=== PATIENT | female | born 1935 | race Caucasian/White ===

== ENCOUNTER 2020-04-27 15:56 | Emergency (ER) | payer MEDICARE, SELFPAY ==
--- NOTE | 2020-04-27 | CT_ITS ---
EXAMINATION: CT HEAD WITHOUT CONTRAST CT CERVICAL SPINE WITHOUT CONTRAST CLINICAL INFORMATION: Fall. Trauma. COMPARISON: None. TECHNIQUE: Imaging was performed from the skull base to vertex without intravenous administration of contrast. In addition, helical noncontrast CT imaging was acquired through the cervical spine and source images were reviewed along with axial reconstructions and sagittal and coronal MPRs. [This CT examination was performed using dose optimization techniques as appropriate, variously including the following: *Automated exposure control *Adjustment of mA and/or kV according to patient size (this includes techniques or standardized protocols for targeted exams where dose is matched to indication/reason for exam; i.e. extremities or head) *Use of iterative reconstruction technique] DLP: 740.43+303.37 mGy-cm FINDINGS: HEAD: No intracranial mass, hemorrhage, or midline shift is visualized. There is atrophy with prominence of the ventricles and the sulci and hypodensity of the periventricular white matter due to chronic small vessel ischemic disease. There are vascular calcifications of the internal carotid arteries bilaterally. No extra-axial collections are identified. The paranasal sinuses and mastoid air cells are well aerated. CERVICAL SPINE: There is no evidence of acute cervical spine fracture. Vertebral bodies remain normal in height. Cervical vertebrae have normal alignment. Cervical disc height normal. The facet joints are normal. There is minor degenerative change of the C1-C2 articulation between the dens and anterior arch of C1. No pre- or paravertebral soft tissue abnormality is identified. Limited assessment of the lung apices is unremarkable. IMPRESSION: 1. No acute intracranial pathology. 2. No CT evidence of acute cervical spine fracture or traumatic subluxation
--- NOTE | 2020-04-27 | CT_ITS ---
EXAMINATION: CT LUMBAR SPINE WITHOUT CONTRAST CLINICAL INFORMATION: Pain. Fall. Concern for compression fracture. COMPARISON: None TECHNIQUE: Axial images obtained through lumbar spine. Coronal and sagittal reformatted images are performed at the CT scanner This CT examination was performed using dose optimization techniques as appropriate, variously including the following: *Automated exposure control *Adjustment of mA and/or kV according to patient size (this includes techniques or standardized protocols for targeted exams where dose is matched to indication/reason for exam; i.e. extremities or head) *Use of iterative reconstruction technique DLP; 560.23 mGy-cm FINDINGS: Lumbar vertebrae have normal height and alignment. No fracture or bone destruction. There is a large hemangioma involving the most of the L1 vertebrae. Lumbar disc heights are normal. There is moderate facet joint arthrosis L4-L5 and L5-S1. No spondylolysis or spondylolisthesis. No paraspinal hematoma or fluid collection. The visualized portions of kidneys are unremarkable. There are vascular wall calcifications of aorta and iliac arteries but there is no aneurysm. IMPRESSION: No acute abnormality of the lumbar spine. Degenerative spondylosis of lower lumbar spine. Large hemangioma involving the L1 vertebrae.
--- NOTE | 2020-04-27 | XR_ITS ---
EXAMINATION: 1. LEFT HAND AND WRIST. 2. LEFT FOREARM. 3. LEFT ELBOW. 4. LEFT HUMERUS CLINICAL INFORMATION: Pain after a fall COMPARISON: None TECHNIQUE: 1. Left hand and wrist. 3 views 2. Left forearm. 2 views 3. Left elbow. 3 views 4. Left humerus. 2 views FINDINGS: 1. Left hand and wrist. There is osteopenia. There is a comminuted transverse intra-articular displaced fracture of the distal radius. There is reversal the radiocarpal angle. There is a transverse mildly displaced fracture of the ulna at the metadiaphysis. Small osseous density adjacent to the ulnar styloid is likely chronic. 2. Left forearm. No additional fracture of the radius or ulna. 3. Left elbow. No fracture dislocation of the elbow. 4. Left humerus. No fracture of the humerus. Shoulder is unremarkable. IMPRESSION: 1. Left hand and wrist. Comminuted intra-articular fracture of the distal radius. Fracture of the distal ulna. 2. Left forearm. No additional fracture of the radius or ulna. 3. Left elbow. No acute abnormality. 4. Left humerus. No acute abnormality.
[2020-04-27 16:03] VITALS: BP 122/59; PULSE 71; RESP 20; O2SAT 92; BMI 31.8
--- NOTE | 2020-04-27 16:09 | PC.NURSE ---
This RN responded [facility] [employer] [facility] Pt drove herself to ed, stated that she had fallen down aprox 10 stairs while trying to assist someone else. Pt denies thinner and LOC. had wrapped l wrist with FLAKITO at home. palpable lumps on top of head. no c spine tenderness while in vehicle. was collared while still in vehicle then transfered to stretcher in parking lot.
--- NOTE | 2020-04-27 16:42 | ED.FALL ---
HPI - Fall General Chief Complaint: Fall <NAA Cowart - Last Filed: 04/27/20 19:56> Stated Complaint: Fall <NAA Cowart - Last Filed: 04/27/20 19:56> Time Seen by Provider: 04/27/20 16:28 <NAA Cowart - Last Filed: 04/27/20 19:56> Source: patient and EMS <NAA Cowart - Last Filed: 04/27/20 19:56> Mode of arrival: EMS <NAA Cowart - Last Filed: 04/27/20 19:56> Limitations: no limitations <NAA Cowart - Last Filed: 04/27/20 19:56> History of Present Illness HPI Narrative: 84 y/o female presenting s/p fall down 5 stairs today while helping an elderly man with a walker she tripped and fell. She landed on her back, hitting her head and left side as fell down 5 steps. She reports pain in her low back, left arm and wrist. No LOC. Not on blood thinners. No neck pain or headache. <NAA Cowart - Last Filed: 04/27/20 19:56> MD complaint: fall <NAA Cowart - Last Filed: 04/27/20 19:56> Onset (ago): minute(s) (45) <NAA Cowart - Last Filed: 04/27/20 19:56> Fall from: standing <NAA Cowart - Last Filed: 04/27/20 19:56> Fall witnessed: yes, by bystander <NAA Cowart - Last Filed: 04/27/20 19:56> Loss of consciousness: none <NAA Cowart - Last Filed: 04/27/20 19:56> Prolonged down time: no <NAA Cowart - Last Filed: 04/27/20 19:56> Symptoms prior to fall: none <NAA Cowart - Last Filed: 04/27/20 19:56> Context: tripped/slipped <NAA Cowart - Last Filed: 04/27/20 19:56> Location of injury: head and back <ANA Cowart Last Filed: 04/27/20 19:56> Location of injury - extremities: left: shoulder, arm, elbow, forearm and hand <NAA Cowart Last Filed: 04/27/20 19:56> Severity: moderate <NAA Cowart Filed: 04/27/20 19:56> Severity scale (1-10): 7 <NAA Cowart Last Filed: 04/27/20 19:56> Quality: aching <NAA Cowart Filed: 04/27/20 19:56> Associated symptoms (after fall): weakness <NAA Cowart Filed: 04/27/20 19:56> Related Data Home Medications: Previous Rx's Medication Instructions Recorded oxycodone [Roxicodone] 2.5 mg PO Q8H PRN #10 tab 04/27/20 <NAA Cowart Last Filed: 04/27/20 19:56> Allergies/Adverse Reactions: Allergies Allergy/AdvReac Type Severity Reaction Status Date / Time No Known Allergies Allergy Verified 04/27/20 16:13 <NAA Cowart Filed: 04/27/20 19:56> Review of Systems Review of Systems: Constitutional: No Fever, No Chills ENT/Mouth: No sore throat, No Rhinorrhea, No Swallowing Difficulty Eyes: No Eye Pain, No Swelling, No Redness Cardiovascular: No Chest Pain or SOB, No Orthopnea, positive Edema (chronic) Respiratory: No Cough, No Sputum, No Wheezing or dyspnea Gastrointestinal: No Nausea, No Vomiting, No Diarrhea, No abdominal Pain, No Hematochezia, No Melena Genitourinary: No Dysuria, No Urinary Frequency, No Hematuria Musculoskeletal: positive left wrist and forearm pain, left shoulder pain, low back pain, chronic bilateral knee pain No Myalgias Skin: No Skin Lesions, No rash Neuro: No Weakness, No Numbness, No Dizziness, No Headache Psych: No Anxiety/Panic, No Depression Heme/Lymph: No Bruising, No Lymphadenopathy Endocrine: No Polyuria, No Polydipsia All other 10 point ROS are negative. <NAA Cowart Last Filed: 04/27/20 19:56> [facility] Past Medical History Attestation statement: The following information was validated with the patient. <NAA Cowart - Last Filed: 04/27/20 19:56> Medical History: Medical History COPD (chronic obstructive pulmonary disease) HTN (hypertension) <NAA Cowart - Last Filed: 04/27/20 19:56> Social History Social History: Social History Alcohol intake: never Smoking Status: Never smoker Smoked in Last 30 Days: No Use of substances other than those prescribed or required for medical reasons: No Advance Directives: No Advance Directives Information Provided: Yes <NAA Cowart - Last Filed: 04/27/20 19:56> Physical Exam Vital Signs and I&O and Narrative: Vital Signs and I&O: Vital Signs Temp 98.6 F 04/27/20 20:36 Pulse 76 04/27/20 20:36 Resp 15 04/27/20 20:36 BP 136/56 L 04/27/20 20:36 Pulse Ox 98 04/27/20 20:36 Intake & Output 04/27/20 04/27/20 04/28/20 06:59 18:59 06:59 Weight 89.6 kg Body Mass Index 31.8 Appearance: Alert. Oriented X3. No acute distress. Eyes: Pupils equal, round and reactive to light. ENT: Pharynx normal. Neck: Normal inspection. Neck supple. No C-spine tenderness CVS: Normal heart rate and rhythm. Pulses normal. Respiratory: No respiratory distress. Breath sounds normal. Abdomen: Soft and nontender. +BS x4 Skin: Skin warm and dry. Normal skin color. Normal skin turgor. No rashes. Extremities: left forearm tender with limited ROM of left wrist. NV intact. Neuro: Oriented X 3. No motor deficit. No sensory deficit. <NAA Cowart - Last Filed: 04/27/20 19:56> Vital Signs and I&O: Vital Signs Temp 98.6 F 04/27/20 20:36 Pulse 76 04/27/20 20:36 Resp 15 04/27/20 20:36 BP 136/56 L 04/27/20 20:36 Pulse Ox 98 10/03/20 20:36 Intake & Output 04/27/20 04/27/20 04/28/20 06:59 18:59 06:59 Weight 89.6 kg Body Mass Index 31.8 <Geovany Cee DO - Last Filed: 04/28/20 01:16> Course Course Hospital Course: imaging reveals distal ulnar and radius fracture - CT head/neck and lumbar spine showed no acute injury. will splint in [place] splint and refer to ortho. recommended assessment for STR however patient is refusing <NAA Cowart - Last Filed: 04/27/20 19:56> MDM - Fall Differential Diagnosis Differential diagnosis: Likely dislocation, fracture, compression fracture and concussion without loss of consciousness <NAA Cowart - Last Filed: 04/27/20 19:56> Medical Records Attestation: I reviewed the patient's medical records. <NAA Cowart - Last Filed: 04/27/20 19:56> Lab Data Attestation: I reviewed the patient's lab results. <NAA Cowart - Last Filed: 04/27/20 19:56> Result diagrams: : 04/27/20 17:20 04/27/20 17:20 <NAA Cowart - Last Filed: 04/27/20 19:56> Labs: Lab Results 04/27/20 04/27/20 04/27/20 Range/Units 17:20 17:20 17:20 WBC 13.9 H (4.8-10.8) X10*3/uL RBC 4.76 (4.20-5.50) X10*6/uL Hgb 14.4 (12.0-16.0) g/dl Hct 44.1 (37-47) % MCV 92.6 (80-98) fL MCH 30.3 (27.0-33.0) pg MCHC 32.7 (31.0-35.0) g/dl RDW 14.2 (11.0-16.0) % Plt Count 201 (160-400) X10*3/uL MPV 10.5 (9.4-12.3) fL Immature Gran % (Auto) 0.7 H (0.0-0.4) % Neut % (Auto) 82.8 H (45-73) % Lymph % (Auto) 7.9 L (20-40) % [place] % (Auto) 8.3 (2-11) % Eos % (Auto) 0.1 (0-4) % Baso % (Auto) 0.2 (0-2) % Neut # (Auto) 11.5 H (2.0-8.3) X10*3/uL Lymph # (Auto) 1.1 L (1.2-4.9) X10*3/uL [place] # (Auto) 1.2 (0.1-1.2) X10*3/uL Eos # (Auto) 0.0 (0.0-0.4) X10*3/uL Baso # (Auto) 0.0 (0.0-0.2) X10*3/uL Abs Immat Gran (auto) 0.10 H (0.00-0.03) X10*3/uL Absolute Nucleated RBC 0.000 (0.0-0.012) X10*3/uL Nucleated RBC % (auto) 0.0 (0.0-0.2) /100WBC PT 12.5 (10.8-13.0) SEC INR 1.1 (0.9-1.1) APTT 31.9 (24.1-38.0) SEC Sodium 141 (135-145) mmol/L Potassium 4.9 (3.3-5.1) mmol/l Chloride 107 (96-108) mmol/L Carbon Dioxide 24 (22-29) mmol/L Anion Gap 15 (12-20) BUN 21 H (9-16) mg/dL Creatinine 0.95 (0.5-1.4) mg/dL Estim Creat Clear Calc 48.8 Estimated GFR 56 Random Glucose 105 (60-115) mg/dL Calcium 9.8 (8.4-10.2) mg/dL Total Bilirubin 0.9 (0.0-1.0) mg/dL Direct Bilirubin 0.3 (0.0-0.5) mg/dL AST 40 H (5-31) U/L ALT 31 (0-31) U/L Alkaline Phosphatase 102 (39-117) U/L Total Protein 7.4 (6.5-8.0) g/dL Albumin 4.2 (3.5-5.0) g/dL <NAA Cowart - Last Filed: 04/27/20 19:56> Lab Results 04/27/20 04/27/20 04/27/20 Range/Units 17:20 17:20 17:20 WBC 13.9 H (4.8-10.8) X10*3/uL RBC 4.76 (4.20-5.50) X10*6/uL Hgb 14.4 (12.0-16.0) g/dl Hct 44.1 (37-47) % MCV 92.6 (80-98) fL MCH 30.3 (27.0-33.0) pg MCHC 32.7 (31.0-35.0) g/dl RDW 14.2 (11.0-16.0) % Plt Count 201 (160-400) X10*3/uL MPV 10.5 (9.4-12.3) fL Immature Gran % (Auto) 0.7 H (0.0-0.4) % Neut % (Auto) 82.8 H (45-73) % Lymph % (Auto) 7.9 L (20-40) % [place] % (Auto) 8.3 (2-11) % Eos % (Auto) 0.1 (0-4) % Baso % (Auto) 0.2 (0-2) % Neut # (Auto) 11.5 H (2.0-8.3) X10*3/uL Lymph # (Auto) 1.1 L (1.2-4.9) X10*3/uL [place] # (Auto) 1.2 (0.1-1.2) X10*3/uL Eos # (Auto) 0.0 (0.0-0.4) X10*3/uL Baso # (Auto) 0.0 (0.0-0.2) X10*3/uL Abs Immat Gran (auto) 0.10 H (0.00-0.03) X10*3/uL Absolute Nucleated RBC 0.000 (0.0-0.012) X10*3/uL Nucleated RBC % (auto) 0.0 (0.0-0.2) /100WBC PT 12.5 (10.8-13.0) SEC INR 1.1 (0.9-1.1) APTT 31.9 (24.1-38.0) SEC Sodium 141 (135-145) mmol/L Potassium 4.9 (3.3-5.1) mmol/l Chloride 107 (96-108) mmol/L Carbon Dioxide 24 (22-29) mmol/L Anion Gap 15 (12-20) BUN 21 H (9-16) mg/dL Creatinine 0.95 (0.5-1.4) mg/dL Estim Creat Clear Calc 48.8 Estimated GFR 56 Random Glucose 105 (60-115) mg/dL Calcium 9.8 (8.4-10.2) mg/dL Total Bilirubin 0.9 (0.0-1.0) mg/dL Direct Bilirubin 0.3 (0.0-0.5) mg/dL AST 40 H (5-31) U/L ALT 31 (0-31) U/L Alkaline Phosphatase 102 (39-117) U/L Total Protein 7.4 (6.5-8.0) g/dL Albumin 4.2 (3.5-5.0) g/dL <Geovany Cee DO - Last Filed: 04/28/20 01:16> Imaging Data arm xray: Radiologist's impression: 1. Left hand and wrist. Comminuted intra-articular fracture of the distal radius. Fracture of the distal ulna. <NAA Cowart - Last Filed: 04/27/20 19:56> Discharge Plan Discharge Clinical Impression: Closed fracture distal radius and ulna, Fall (on) (from) other stairs and steps, initial encounter <NAA Cowart - Last Filed: 04/27/20 19:56> Patient Disposition: Home, Self-Care <NAA Cowart - Last Filed: 04/27/20 19:56> Instructions: Wrist Fracture in Adults (ED) <NAA Cowart - Last Filed: 04/27/20 19:56> Additional Instructions: Assessment for Short Term Rehab was recommended however you are refusing. Recommend that family help you with your activities of daily living until you are evaluated by Orthopedics. Wear your splint until you are evaluated by Orthopedics. Keep left arm elevated when able. If you lose feeling in your hand or fingers, numbness, tingling or loss of function come back to the ER or call 911. Limit use of your left hand. <NAA Cowart - Last Filed: 04/27/20 19:56> Prescriptions: New oxycodone [Roxicodone] 5 mg tablet 2.5 mg PO Q8H PRN (Reason: pain) Qty: 10 RF: 0 <NAA Cowart - Last Filed: 04/27/20 19:56> Referrals: Maico Castrejon MD [Physician] - 2 days <NAA Cowart - Last Filed: 04/27/20 19:56> Interventions: ED Discharge Assessment Last Done: 04/27/20 20:26 <NAA Cowart - Last Filed: 04/27/20 19:56> Discharge Date/Time: 04/27/20 20:38 <NAA Cowart - Last Filed: 04/27/20 19:56>
[2020-04-27 17:29] LABS: MANUAL DIFF FLAG NO
[2020-04-27 17:39] LABS: INTERNATIONAL NORM RATIO 1.1 (0.9-1.1); Prothrombin Time 12.5 SEC (10.8-13.0)
[2020-04-27 17:42] LABS: Partial Thromboplastin Time 31.9 SEC (24.1-38.0)
[2020-04-27 17:44] LABS: Basophils Percent Auto 0.2 % (0-2); Eosinophils Percent Auto 0.1 % (0-4); Hematocrit 44.1 % (37-47); Hemoglobin 14.4 g/dl (12.0-16.0); Imm Gran Pct Auto 0.7 % (0.0-0.4); Lymphocytes Absolute Auto 1.1 X10*3/uL (1.2-4.9); Lymphocytes Percent Auto 7.9 % (20-40); Mean Corpuscular HGB Conc 32.7 g/dl (31.0-35.0); Mean Corpuscular Hemoglobin 30.3 pg (27.0-33.0); Mean Corpuscular Volume 92.6 fL (80-98); Mean Platelet Volume 10.5 fL (9.4-12.3); Monocytes Absolute Auto 1.2 X10*3/uL (0.1-1.2); Monocytes Percent Auto 8.3 % (2-11); Neutrophils Absolute Auto 11.5 X10*3/uL (2.0-8.3); Neutrophils Percent Auto 82.8 % (45-73); Platelet Count 201 X10*3/uL (160-400); Red Blood Count 4.76 X10*6/uL (4.20-5.50); Red Cell Distribution Width 14.2 % (11.0-16.0); White Blood Count 13.9 X10*3/uL (4.8-10.8)
[2020-04-27 17:54] VITALS: BP 147/70; PULSE 77; RESP 18; TEMP 36.5; O2SAT 94
[2020-04-27 18:10] LABS: Alanine Aminotransferase 31 U/L (0-31); Albumin Level 4.2 g/dL (3.5-5.0); Alkaline Phosphatase 102 U/L (39-117); Anion Gap 15 (12-20); Aspartate Amino Transferase 40 U/L (5-31); Bilirubin Direct 0.3 mg/dL (0.0-0.5); Bilirubin Total 0.9 mg/dL (0.0-1.0); Blood Urea Nitrogen 21 mg/dL (9-16); Calcium 9.8 mg/dL (8.4-10.2); Carbon Dioxide 24 mmol/L (22-29); Chloride 107 mmol/L (96-108); Creatinine Clr Calc Pharmacy 48.8; Estimated Glomerular Filt Rate 56; Glucose Random 105 mg/dL (60-115); Potassium 4.9 mmol/l (3.3-5.1); Sodium 141 mmol/L (135-145); Total Protein 7.4 g/dL (6.5-8.0)
[2020-04-27] MEDS: Pregabalin 100 MG CAPSULE PO (18:52)
[2020-04-27] MEDS: Acetaminophen 325 MG TABLET 650 MG PO (18:52)
--- NOTE | 2020-04-27 19:03 | PC.NURSE ---
PATIENT HAS A FALL TODAY AND FELL BACKWARDS DOWN 5 STAIRS. PATIENT HAS A HEMATOMA ON THE BACK OF HER HEAD. LEFT ARM AND ELBOW XRAYED TO CHECK FOR FRACTURES/BREAKS. CARE TAKEN OVER FROM DYLAN Mccarthy RN. PATIENT AWAITING XRAY RESULTS AND MD RE-EVALUATION
[2020-04-27 20:36] VITALS: BP 136/56; PULSE 76; RESP 15; TEMP 37; O2SAT 98
== END 2020-04-27 20:38 | disposition home or self-care (01) ==
PROVIDERS: Physician Assistant; Emergency Provider Emergency Medicine; PCP Internal Medicine
DX: S52.602A Unspecified fracture of lower end of left ulna, initial encounter for closed fracture (principal); S52.502A Unspecified fracture of the lower end of left radius, initial encounter for closed fracture; W10.8XXA Fall (on) (from) other stairs and steps, initial encounter; I10 Essential (primary) hypertension; Y93.89 Activity, other specified; Y92.9 Unspecified place or not applicable; Y99.9 Unspecified external cause status
CPT/HCPCS: 29125; 36415; 70450; 72125; 72131; 73060; 73070; 73090; 73110; 73130; 80048; 80076; 85025; 85610; 85730; 99284

== ENCOUNTER 2020-05-01 16:34 | Emergency (ER) | payer MEDICARE, SELFPAY ==
[2020-05-01 17:17] VITALS: BP 123/52; PULSE 71; RESP 18; TEMP 36.6; O2SAT 94; BMI 33.5
--- NOTE | 2020-05-01 17:35 | ED.EXTPRO ---
HPI - Extremity Problem General Chief complaint: Extremity Injury, Upper <Geetha Pace NP - Last Filed: 05/01/20 17:45> Stated complaint: HAND SWELLING <Geetha Pace NP - Last Filed: 05/01/20 17:45> Time Seen by Provider: 05/01/20 17:10 <Geetha Pace NP - Last Filed: 05/01/20 17:45> Source: patient <Geetha Pace NP - Last Filed: 05/01/20 17:45> Mode of arrival: ambulatory <JITENDRA Hanson Last Filed: 05/01/20 17:45> Limitations: no limitations <JITENDRA Hanson Last Filed: 05/01/20 17:45> History of Present Illness HPI Narrative: Patient here on April 27 status post fall. Diagnosed with left wrist fracture. Placed in sugar-tong splint. Today increasing swelling to the left hand. Return to ED for same. has not seen Orthopedics yet. <Geetha Pace NP - Last Filed: 05/01/20 17:45> MD Complaint: extremity swelling <JITENDRA Hanson Last Filed: 05/01/20 17:45> Onset (ago): day(s) ( One day) <JITENDRA Hanson Last Filed: 05/01/20 17:45> Pain Consistency: other ( no pain) <JITENDRA Hanson Last Filed: 05/01/20 17:45> Location: left <JITENDRA Hanson Last Filed: 05/01/20 17:45> Radiation: none <JITENDRA Hanson Last Filed: 05/01/20 17:45> Relieving factors: nothing <JITENDRA Hanson Last Filed: 05/01/20 17:45> Associated symptoms: denies other symptoms <JITENDRA Hanson Last Filed: 05/01/20 17:45> Related Data Home medications: Previous Rx's Medication Instructions Recorded oxycodone [Roxicodone] 2.5 mg PO Q8H PRN #10 tab 04/27/20 <Geetha Pace NP - Last Filed: 05/01/20 17:45> Allergies/Adverse reactions: Allergies Allergy/AdvReac Type Severity Reaction Status Date / Time No Known Allergies Allergy Verified 04/27/20 16:13 <Geetha Pace NP - Last Filed: 05/01/20 17:45> Review of Systems Review of Systems: Yes all other systems are reviewed and are negative <Geetha Pace NP - Last Filed: 05/01/20 17:45> Constitutional: Constitutional: Reports no additional constitutional complaints, Denies body ache(s), Denies chills, Denies fever(s), Denies headache(s) and Denies weakness <Geetha Pace NP - Last Filed: 05/01/20 17:45> Eyes: Eyes: Reports no additional eye complaints and Denies change in vision <Geetha Pace NP - Last Filed: 05/01/20 17:45> ENT: Reports system reviewed and no additional complaints, except as documented, Denies dizziness, Denies headache(s), Denies nasal congestion, Denies nasal discharge and Denies neck pain <Geetha Pace NP - Last Filed: 05/01/20 17:45> Cardiovascular: Cardiovascular: Reports no additional cardiovascular complaints, Denies chest pain, Denies leg edema and Denies dyspnea <Geetha Pace NP - Last Filed: 05/01/20 17:45> Respiratory: Respiratory: Reports no additional respiratory complaints, Denies cough and Denies dyspnea <Geetha Pace NP - Last Filed: 05/01/20 17:45> Gastrointestinal: Gastrointestinal: Reports no additional gastrointestinal complaints, Denies abdominal pain, Denies diarrhea, Denies nausea and Denies vomiting <Geetha Pace NP - Last Filed: 05/01/20 17:45> Genitourinary: Genitourinary: Reports no additional female genitourinary complaints and Denies urinary incontinence <Geetha Pace NP - Last Filed: 05/01/20 17:45> Musculoskeletal: Musculoskeletal: Reports no additional musculoskeletal complaints, Denies back pain, Denies arthralgias, Reports joint swelling, Denies neck pain, Denies numbness and Denies tingling <Geetha Pace NP - Last Filed: 05/01/20 17:45> Integumentary/Breasts: Skin/Breast: Reports system reviewed and no additional complaints, except as docu and Denies rash <Geetha Pace NP - Last Filed: 05/01/20 17:45> Neurologic: Reports system reviewed and no additional complaints, except as documented, Denies Abnormal speech present, Denies dizziness, Denies headache(s), Denies numbness, Denies tingling and Denies weakness <Geetha Pace NP - Last Filed: 05/01/20 17:45> PMF Past Medical History Attestation statement: The following information was validated with the patient. <Geetha Pace NP - Last Filed: 05/01/20 17:45> Source: obtained from family and nursing notes reviewed <Geetha Pace NP - Last Filed: 05/01/20 17:45> Medical History: Medical History COPD (chronic obstructive pulmonary disease) HTN (hypertension) Lupus <Geetha Pace NP - Last Filed: 05/01/20 17:45> Surgical History: Surgical History History of bilateral knee replacement <Geetha Pace NP - Last Filed: 05/01/20 17:45> Social History Social History: Social History Alcohol intake: never Smoking Status: Never smoker Smoked in Last 30 Days: No Use of substances other than those prescribed or required for medical reasons: No Advance Directives: No Advance Directives Information Provided: Yes <Geetha Pace NP - Last Filed: 05/01/20 17:45> Physical Exam Vital Signs and I&O and Narrative: Vital Signs and I&O: Vital Signs Temp 97.9 F 05/01/20 17:17 Pulse 71 05/01/20 17:17 Resp 18 05/01/20 17:17 BP 123/52 L 05/01/20 17:17 Pulse Ox 94 05/01/20 17:17 Intake & Output 05/01/20 05/01/20 05/02/20 06:59 18:59 06:59 Weight 88.451 kg Body Mass Index 33.5 <Geetha Pace NP - Last Filed: 05/01/20 17:45> Vital Signs and I&O: Vital Signs Temp 97.9 F 05/01/20 17:17 Pulse 71 05/01/20 17:17 Resp 18 05/01/20 17:17 BP 123/52 L 05/01/20 17:17 Pulse Ox 94 05/01/20 17:17 Intake & Output 05/01/20 05/01/20 05/02/20 06:59 18:59 06:59 Weight 88.451 kg Body Mass Index 33.5 <Geovany Cee DO - Last Filed: 05/02/20 02:40> Const: General: cooperative, healthy appearing, comfortable and no acute distress <Geetha Pace NP - Last Filed: 05/01/20 17:45> Orientation/consciousness: patient oriented x3 <Geetha Pace NP - Last Filed: 05/01/20 17:45> Limitations: no limitations <Geetha Pace NP - Last Filed: 05/01/20 17:45> HENMT: Head: Yes normal to inspection <Geetha Pace NP - Last Filed: 05/01/20 17:45> Ears: hearing grossly normal bilaterally <Geetha Pace NP - Last Filed: 05/01/20 17:45> General nose exam: Normal external nose present <Geetha Pace NP - Last Filed: 05/01/20 17:45> Face and sinus: Yes normal facial exam <Geetha Pace NP - Last Filed: 05/01/20 17:45> Mouth: Normal oral and palatal mucosa present <Geetha Pace NP - Last Filed: 05/01/20 17:45> Throat: Yes posterior oropharynx normal <Geetha Pace NP - Last Filed: 05/01/20 17:45> Eyes: General: appearance normal, both eyes and all related structures <Geetha Pace NP - Last Filed: 05/01/20 17:45> Pupils: Equal, round and reactive pupils present <Geetha Pace NP - Last Filed: 05/01/20 17:45> Neck: Neck: Yes normal visual inspection <Geetha Pace NP - Last Filed: 05/01/20 17:45> Chest: Chest palpation & inspection: normal inspection of the chest <Geetha Pace NP - Last Filed: 05/01/20 17:45> Resp: Effort & Inspection: normal respiratory effort <Geetha Pace NP - Last Filed: 05/01/20 17:45> Auscultation: clear to auscultation bilaterally <Geetha Pace NP - Last Filed: 05/01/20 17:45> Cardio: Rate: regular rate <Geetha Pace NP - Last Filed: 05/01/20 17:45> Rhythm: regular rhythm <Geetha Pace NP - Last Filed: 05/01/20 17:45> Peripheral pulses: Peripheral pulses 2+ throughout <Geetha Pace NP - Last Filed: 05/01/20 17:45> GI: Inspection: Yes normal to inspection <Geetha Pace NP - Last Filed: 05/01/20 17:45> Palpation (GI): Soft to palpation and nontender <Geetha Pace NP - Last Filed: 05/01/20 17:45> Auscultation: normal bowel sounds <Geetha Pace NP - Last Filed: 05/01/20 17:45> Back/Spine/Pelvis: Thoracic/Lumbar Spine: thoracic and lumbar spine normal to inspection <Geetha Pace NP - Last Filed: 05/01/20 17:45> Skin: General skin exam: no rashes or lesions noted <Geetha Pace NP - Last Filed: 05/01/20 17:45> Neuro: General: patient oriented x3, no focal motor deficits and normal sensation to monofilament <Geetha Pace NP - Last Filed: 05/01/20 17:45> Cranial nerves: Yes Equal, round and reactive pupils present <Geetha Pace NP - Last Filed: 05/01/20 17:45> Cognition (Neuro): normal cognition <JITENDRA Hanson Last Filed: 05/01/20 17:45> Speech: No Abnormal speech present <Geetha Pace NP - Last Filed: 05/01/20 17:45> Gait exam (Neuro): Normal gait present <JITENDRA Hanson Last Filed: 05/01/20 17:45> Motor exam (neuro): 5/5 motor strength present throughout <Geetha Pace NP - Last Filed: 05/01/20 17:45> Extrem: Other: left hand has some ecchymosis over the dorsal aspect. It is warm to touch. There is some [id number]-gr-[id number] swelling over the dorsal aspect. Normal cap refill. Neurovascularly intact distally. After splint was removed patient was noted to have some ecchymosis over the dorsal distal wrist with some mild pain on exam. Palpable radial and ulna pulse. denies any pain over the hand. <Geetha Pace NP - Last Filed: 05/01/20 17:45> General: Yes normal to inspection <Geetha Pace NP - Last Filed: 05/01/20 17:45> MDM - Extremity (Nontraumatic) MDM Narrative Medical decision making narrative: Patient here with some left hand swelling in the setting of recent splint placement for a fractured left wrist. The splint was removed and a new sugar-tong splint was placed. We discussed elevation at home to prevent dependent edema. Reviewed follow-up with orthopedics. Reviewed worrisome signs and symptoms of when to return to the emergency department. <JITENDRA Hanson Last Filed: 05/01/20 17:45> Discharge Plan Discharge Clinical Impression: Fracture of wrist <JITENDRA Hanson Last Filed: 05/01/20 17:45> Patient Disposition: Home, Self-Care <Geetha Pace NP - Last Filed: 05/01/20 17:45> Instructions: Wrist Fracture in Adults (ED), Splint Care (ED) <Geetha Pace NP - Last Filed: 05/01/20 17:45> Additional Instructions: call orthopedics tomorrow for follow-up appointment Keep your left hand on 3 or more pillows with sitting down Apply ice over the splint. <Geetha Pace NP - Last Filed: 05/01/20 17:45> Prescriptions: No Action oxycodone [Roxicodone] 5 mg tablet 2.5 mg PO Q8H PRN (Reason: pain) Qty: 10 RF: 0 <Geetha Pace NP - Last Filed: 05/01/20 17:45> Referrals: Alon Stanley MD [Physician] - 2 days <Geetha Pace NP - Last Filed: 05/01/20 17:45> Interventions: ED Discharge Assessment Last Done: 05/01/20 19:31 <Geetha Pace NP - Last Filed: 05/01/20 17:45> Discharge Date/Time: 05/01/20 18:45 <Geetha Pace NP - Last Filed: 05/01/20 17:45>
== END 2020-05-01 18:45 | disposition home or self-care (01) ==
PROVIDERS: Emergency Provider Emergency Medicine; PCP Internal Medicine
DX: S62.101A Fracture of unspecified carpal bone, right wrist, initial encounter for closed fracture (principal); M79.642 Pain in left hand; X58.XXXA Exposure to other specified factors, initial encounter; Y93.9 Activity, unspecified; Y92.9 Unspecified place or not applicable; Y99.9 Unspecified external cause status
CPT/HCPCS: 99284

== ENCOUNTER 2020-05-01 21:39 | Emergency (ER) | payer MEDICARE, SELFPAY ==
--- NOTE | 2020-05-01 | XR_ITS ---
EXAMINATION: XR FOREARM, RIGHT CLINICAL INFORMATION: Persistent pain, fracture of radius and ulna in cast. COMPARISON: Prior radiograph of the left hand and wrist 04/27/2020 TECHNIQUE: AP and lateral views of the right forearm were obtained. FINDINGS: Cast is in place. Fracture line of the distal radius and ulna remains partially radiolucent. There is good alignment of the fracture fragments. There is no new abnormality IMPRESSION: Reduced distal radial and ulnar fractures in cast. There is no new. Abnormality
[2020-05-01 21:48] VITALS: BP 131/60; PULSE 79; RESP 16; TEMP 36.4; O2SAT 95; BMI 33.5
--- NOTE | 2020-05-01 22:29 | ED.EXTPRO ---
HPI - Extremity Problem General Chief complaint: Extremity Injury, Upper Stated complaint: ARM PAIN Time Seen by Provider: 05/01/20 22:29 History of Present Illness HPI Narrative: This is a 84-year-old female who presents to the emergency department after being evaluated earlier with complaints left ulnar side wrist pain. All documentation since her initial evaluation on Wednesday as well as imaging was reviewed by me. Patient denies any numbness or tingling to her fingers on the left hand and only complains of the localized pain to her left distal ulna. Related Data Previous Rx's Medication Instructions Recorded oxycodone [Roxicodone] 2.5 mg PO Q8H PRN #10 tab 04/27/20 Allergies Allergy/AdvReac Type Severity Reaction Status Date / Time No Known Allergies Allergy Verified 04/27/20 16:13 Review of Systems Review of Systems: Pertinent positives and negatives as stated in the HPI. GEN: no fevers, chills, fatigue, +pain HEENT: no nasal congestion, sore throat, ear pain NEURO: no headache, dizziness, focal weakness PULM: no cough, shortness of breath CV: no chest pain, palpitations, LE edema ABD: no abdominal pain, nausea, vomiting, diarrhea : no dysuria, urgency, frequency SKIN: no rash ROS otherwise negative x 10 PMFSH Past Medical History Source: nursing notes reviewed Medical History COPD (chronic obstructive pulmonary disease) HTN (hypertension) Lupus Surgical History History of bilateral knee replacement Social History Social History Alcohol intake: never Smoking Status: Never smoker Smoked in Last 30 Days: No Use of substances other than those prescribed or required for medical reasons: No Advance Directives: No Advance Directives Information Provided: Yes Physical Exam Vital Signs and I&O and Narrative: Vital Signs and I&O: Vital Signs Temp 97.5 F 05/01/20 21:48 Pulse 79 05/01/20 21:48 Resp 16 05/01/20 21:48 BP 131/60 05/01/20 21:48 Pulse Ox 95 05/01/20 21:48 Intake & Output 05/01/20 05/01/20 05/02/20 06:59 18:59 06:59 Weight 88.451 kg Body Mass Index 33.5 VITAL SIGNS: Reviewed. GENERAL: Well developed, well nourished, in no acute distress. HEAD: Normocephalic/atraumatic, EYES: PERRLA, EOMI intact without pain, no nystagmus/pallor/icterus noted EARS: Ext canals without abnormality, TMs non-bulging and non-erythematous NOSE: Nares patent bilateral OROPHARYNX: no oral lesions noted, posterior pharynx clear and non-erythematous without noted tonsillar enlargement/erythema/exudates NECK: Supple, no adenopathy LUNGS: Normal breath sounds. No adventitious sounds or accessory muscle use. SpO2<95> CARDIOVASCULAR: Regular rate and rhythm without noted murmurs, no JVD or lower extremity edema. ABDOMEN: Soft, non-tender, non-distended with bowel sounds. No rigidity. No guarding. No palpable masses or hernias noted MUSCULOSKELETAL: No tenderness, deformities, or effusions noted on gross inspection. EXTREMITIES: No cyanosis, clubbing or edema. LUE: Capillary refill less than 3 seconds, neurovascular is intact, hand is warm, patient in a ulnar gutter splint. SKIN: Inspection of the skin reveals no rashes, ulcerations, jaundice, pallor, or petechiae. NEUROLOGIC: Alert and oriented x 4. Strength and sensation to light touch were grossly intact x 4. Course Course Course Narrative: This is an 84-year-old female with history and clinical presentation consistent with persistent pain due to splint type. The extremity was re-imaged without any acute abnormalities when compared to 04/27. Splint applied earlier in the day was taken down and she was placed in a sugar-tong with complete resolution of initial pain complaint. Neurovascular was reassessed and found to be within normal limits after a slight adjustment to the splint. The patient and her daughter were encouraged to follow up as scheduled with Orthopedics. Discharge Plan Discharge Clinical Impression: Colles' fracture Patient Disposition: Home, Self-Care Instructions: Wrist Fracture in Adults (ED), Splint Care (ED) Additional Instructions: continue with prior recommendations from Wednesday and earlier today. May sleep with arm on pillows at night. [id number] Tylenol or ibuprofen as needed for pain control. May apply ice for 10-15 minutes, 3 times a day for additional pain relief. Please return should your fingers become numb / tingling /or inability to move. The patient and/or family acknowledge understanding of results (as applicable), diagnosis, treatment plan, need for follow up, and symptoms that should prompt a return to the emergency room. Prescriptions: No Action oxycodone [Roxicodone] 5 mg tablet 2.5 mg PO Q8H PRN (Reason: pain) Qty: 10 RF: 0 Referrals: Alon Stanley MD [Physician] - 2 days ( follow-up as scheduled for Colles fracture of the left upper extremity) Interventions: ED Discharge Assessment Last Done: 05/01/20 23:46 Discharge Date/Time: 05/01/20 23:48
--- NOTE | 2020-05-01 22:39 | PC.NURSE ---
PT HAD AT HOME 2 ADVIL PM AND 1 OXYCODONE 1/2 TAB OF 5MG.
--- NOTE | 2020-05-01 23:03 | PC.NURSE ---
PT WAS SEEN HERE EARILY IN DAY BY JITENDRA GALARZA. PT HAD SPLINTED BY PCT ANGLE AND HE PLACED A SUGAR TONE TO THE HUMEROUS AREA WHE I WENT IN TO ASSESS PT I NOTED THAT D/C PAPER READ WRIST FX AND JITENDRA GALARZA WAS GONE. I ASK JITENDRA WATTERS TO ASSESS PT AND LOOK UP IMAGING FROM SATURDAYS VISIT. JITENDRA WATTERS CHANGED SPLINT TO POSTERIOR. POSTERIOR APPLIED BY PCT ANGLE.
--- NOTE | 2020-05-01 23:07 | PC.NURSE ---
DR LILLY IN TO SEE PT REMOVES CASTE AND ORDER SUGAR TONE TO WRIST AREA. SPLINT PLACED BY SHIRLEY ALMEIDA AND CHECKED BY DR. LILLY.
== END 2020-05-01 23:48 | disposition home or self-care (01) ==
PROVIDERS: Emergency Provider Student in an Organized Health Care Education/Training Program
DX: S52.532A Colles' fracture of left radius, initial encounter for closed fracture (principal); X58.XXXA Exposure to other specified factors, initial encounter; I10 Essential (primary) hypertension; Y93.9 Activity, unspecified; Y92.9 Unspecified place or not applicable; Y99.9 Unspecified external cause status
CPT/HCPCS: 29125; 73090; 99284

== ENCOUNTER 2020-05-07 13:17 | Outpatient (REF) | payer MEDICARE, SELFPAY ==
--- NOTE | 2020-05-07 13:56 | XR_ITS ---
EXAMINATION: XR WRIST, LEFT CLINICAL INFORMATION: Fracture follow-up COMPARISON: 05/01/2020 TECHNIQUE: PA and lateral views of the left wrist. FINDINGS: Osseous details obscured by overlying fiberglass cast. No change in alignment of the comminuted distal radial metaphyseal fracture with intra-articular extension and dorsal impaction with dorsal angulation. Minimally displaced fracture of the distal ulnar diametaphysis unchanged. Soft tissues unremarkable. IMPRESSION: Stable alignment of the comminuted distal radial fracture with intra-articular extension, dorsal impaction and angulation. Stable alignment of the minimally displaced distal ulnar diametaphyseal fracture.
== END 2020-05-07 13:18 | disposition home or self-care (01) ==
LOC: HO.XRAY 13:17
PROVIDERS: Visit Provider Physician Assistant
DX: S52.502A Unspecified fracture of the lower end of left radius, initial encounter for closed fracture (principal); S52.532A Colles' fracture of left radius, initial encounter for closed fracture; X58.XXXA Exposure to other specified factors, initial encounter; Y93.9 Activity, unspecified; Y92.9 Unspecified place or not applicable; Y99.8 Other external cause status; J44.9 Chronic obstructive pulmonary disease, unspecified; I10 Essential (primary) hypertension; Z96.653 Presence of artificial knee joint, bilateral
CPT/HCPCS: 25600; 73100; 99203

== ENCOUNTER → 2020-05-13 14:17 | Outpatient (BNVA) | payer MEDICARE, SELFPAY | PROVIDERS: Visit Provider Physician Assistant | DX: Z76.89 Persons encountering health services in other specified circumstances (principal) ==

== ENCOUNTER 2020-06-03 09:57 | Outpatient (REF) | payer MEDICARE, SELFPAY ==
--- NOTE | 2020-06-03 10:04 | XR_ITS ---
EXAMINATION: XR WRIST, LEFT CLINICAL INFORMATION: Colles' fracture COMPARISON: May 07, 2020, July 01, 2020, April 27, 2000 TECHNIQUE: PA, lateral, and oblique views of the left wrist. FINDINGS: There is no change in alignment of comminuted intra-articular fracture of the distal left radius with continued dorsal angulation of distal fracture fragment. There is also intra-articular fracture of the distal ulnar. There is some increase in periosteal new bone formation. Fracture lines are still evident. XR/XR wrist LT min 3V IMPRESSION: No change in alignment of healing distal left radius and ulnar fractures with dorsal angulation of the radiocarpal joint.
== END 2020-06-03 09:58 | disposition home or self-care (01) ==
LOC: HO.HOSX 09:57
PROVIDERS: Visit Provider Physician Assistant
DX: S52.532A Colles' fracture of left radius, initial encounter for closed fracture (principal)
CPT/HCPCS: 73110; 99212

== ENCOUNTER → 2020-11-18 09:30 | Outpatient (BNVA) | payer MEDICARE, SELFPAY | PROVIDERS: PCP Internal Medicine; Visit Provider Obstetrics & Gynecology ==

== ENCOUNTER 2021-01-07 10:11 | Outpatient (REF) | payer MEDICARE, SELFPAY ==
--- NOTE | ~2021-01-07 | MM_ITS ---
EXAMINATION: MM SCREENING DIGITAL MAMMOGRAPHY, BILATERAL CLINICAL INFORMATION: Screening. Asymptomatic. No TC score (age 85). No known family history breast cancer. COMPARISON: Mammography: 03/21/2019 (new baseline). TECHNIQUE: Digital mammography is performed in craniocaudal and mediolateral oblique views along with computer-aided detection (CAD). FINDINGS: There are scattered areas of fibroglandular density (ACR BI-RADS breast composition Category b). Parenchymal pattern is similar to prior new baseline exam 2019. There is no interval mass or architectural abnormality or abnormal calcifications. The axilla and skin contours are unremarkable. No significant changes. MM/MM screening mammo BI IMPRESSION: No mammographic evidence of malignancy. ASSESSMENT: BI-RADS 1: Negative RECOMMENDATION: Routine annual mammography screening. This patient's information was entered into a reminder system with a target due date for their next mammogram.
--- NOTE | ~2021-01-07 | MM_ITS ---
EXAMINATION: BONE DENSITOMETRY CLINICAL INDICATION: Encounter for gynecologic examination. Screening for osteoporosis. COMPARISON: None (current study represents initial baseline exam). CT lumbar spine 04/27/2020. TECHNIQUE: Using a [employer] DXA System (software version: 13.1) manufactured by [employer], dual-energy x-ray absorptiometry was performed of the lumbar spine and left hip. The images are of good technical quality. Summary results are attached. FINDINGS: AP SPINE L2-L4 (excluding L1): The data of L1-L4 has been changed to exclude the L1 vertebral body as there is a known diffuse vertebral body hemangioma at L1 and imaging today suggests compression deformity at this level. BMD 0.962 g/cm2, Z-score -0.5, T-score -2.0, osteopenia. LEFT FEMUR, NECK: BMD 0.654 g/cm2, Z-score -0.6, T-score -2.8, osteoporosis. LEFT FEMUR, TOTAL: BMD 0.632 g/cm2, Z-score -1.0, T-score -3.0, osteoporosis. IDENTIFIED RISK FACTORS: Rheumatoid arthritis, recurrent falls, height loss, low calcium intake, history of fracture (adult). Early menopause, secondary osteoporosis. HISTORY OF FRACTURE: Spine, wrist. MEDICATIONS: Vitamin D. MM/XR DEXA axial skeleton IMPRESSION: 1. Suspect L1 vertebral compression fracture, new since CT 04/27/2020. This may be correlated with plain films. 2. DIAGNOSIS: Osteoporosis based on the lowest T-score value of -3.0 in the total femur applying World Health Organization criteria. 3. 10-YEAR FRACTURE RISK PREDICTION, FRAX: Major osteoporotic fracture (clinical spine, forearm, hip or shoulder) 34.5%. Hip fracture 13.6%. 4. Treatment Recommendations: NOF guidelines recommend consideration for treatment in postmenopausal women and men age 50 and older presenting with the following: -A hip or vertebral (clinical or morphometric) fracture. -T-score less than or equal to -2.5 at the femoral neck or spine after appropriate evaluation to exclude secondary causes. -Low bone mass at the hip or spine and a 10-year fracture probability by FRAX of greater than or equal to 3% for hip fracture or greater than or equal to 20% for major osteoporotic fracture based on the [place] adapted WHO algorithm. 5. Other Recommendations: All treatment decisions require clinical judgment and consideration of individual patient factors, including patient preferences, comorbidities, previous drug use, risk factors not captured in the FRAX model (e.g. frailty, falls, vitamin D deficiency, increased bone turnover, interval significant decline in bone density) and possible under or overestimation of fracture risk by FRAX. Additional medical evaluation for secondary cause of low bone mineral density may be appropriate. FUTURE SCAN RECOMMENDATION: People with diagnosed cases of osteoporosis or at high risk for fracture should have regular bone mineral density tests. For patients eligible for Medicare, routine testing is allowed once every 2 years. The testing frequency can be increased to one year for patients who have rapidly progressing disease, those who are receiving or discontinuing medical therapy to restore bone mass, or have additional risk factors.
== END 2021-01-07 10:12 | disposition home or self-care (01) ==
LOC: HO.MAMMO 10:11
PROVIDERS: PCP Otolaryngology; Visit Provider Obstetrics & Gynecology
DX: Z12.31 Encounter for screening mammogram for malignant neoplasm of breast (principal); M81.8 Other osteoporosis without current pathological fracture; M06.9 Rheumatoid arthritis, unspecified; Z78.0 Asymptomatic menopausal state
CPT/HCPCS: 77067; 77080

== ENCOUNTER → 2021-01-20 09:23 | Outpatient (BNVA) | payer MEDICARE, SELFPAY | PROVIDERS: PCP Internal Medicine; Visit Provider Obstetrics & Gynecology | DX: M80.08XA Age-related osteoporosis with current pathological fracture, vertebra(e), initial encounter for fracture (principal) | CPT/HCPCS: 99212 ==

== ENCOUNTER 2021-01-21 12:19 | Outpatient (REF) | payer MEDICARE, SELFPAY ==
[2021-01-21 14:10] LABS: Alanine Aminotransferase 12 U/L (0-31); Albumin Level 3.7 g/dL (3.5-5.0); Alkaline Phosphatase 136 U/L (39-117); Anion Gap 10 (12-20); Aspartate Amino Transferase 23 U/L (5-31); Bilirubin Total 1.1 mg/dL (0.0-1.0); Blood Urea Nitrogen 13 mg/dL (9-16); Calcium 9.7 mg/dL (8.4-10.2); Carbon Dioxide 27 mmol/L (22-29); Chloride 109 mmol/L (96-108); Estimated Glomerular Filt Rate > 60; Glucose Random 89 mg/dL (60-115); Potassium 4.8 mmol/L (3.3-5.1); Sodium 141 mmol/L (135-145); Total Protein 6.7 g/dL (6.5-8.0)
[2021-01-21 14:33] LABS: Thyroid Stimulating Hormone 0.77 uIU/mL (0.32-4.0)
[2021-01-23 14:01] LABS: Calcium (PTHI) 9.5 mg/dL (8.6-10.4); PTHI 78 pg/mL (14-64)
[2021-01-31 17:16] LABS: Vitamin D 25-OH, D2 <4 ng/mL; Vitamin D 25-OH, D3 35 ng/mL; Vitamin D 25-OH, Total 35 ng/mL (30-100)
== END 2021-01-21 12:20 | disposition home or self-care (01) ==
LOC: HO.LAB 12:19
PROVIDERS: PCP Physician Assistant Medical; Visit Provider Student in an Organized Health Care Education/Training Program
DX: M80.08XA Age-related osteoporosis with current pathological fracture, vertebra(e), initial encounter for fracture (principal)
CPT/HCPCS: 36415; 80053; 82306; 83970; 84443; 99202

== ENCOUNTER 2021-06-04 13:55 | Outpatient (REF) | payer MEDICARE, SELFPAY ==
[2021-06-04 17:19] LABS: Alanine Aminotransferase 16 U/L (0-31); Albumin Level 4.1 g/dL (3.5-5.0); Alkaline Phosphatase 98 U/L (39-117); Anion Gap 14 (12-20); Aspartate Amino Transferase 25 U/L (5-31); Bilirubin Total 0.8 mg/dL (0.0-1.0); Blood Urea Nitrogen 23 mg/dL (9-16); Calcium 9.7 mg/dL (8.4-10.2); Carbon Dioxide 22 mmol/L (22-29); Chloride 106 mmol/L (96-108); Estimated Glomerular Filt Rate 48; Glucose Random 92 mg/dL (60-115); Phosphorus 3.4 mg/dL (2.7-4.5); Potassium 5.1 mmol/L (3.3-5.1); Sodium 137 mmol/L (135-145); Total Protein 7.5 g/dL (6.5-8.0)
[2021-06-04 17:32] LABS: Thyroid Stimulating Hormone 0.79 uIU/mL (0.32-4.0); Vitamin D 25-OH Total 21.6 ng/mL (>30)
[2021-06-05 14:26] LABS: Prot Elec - Albumin 4.1 g/dL (3.8-4.8); Prot Elec - Alpha1 0.2 g/dL (0.2-0.3); Prot Elec - Beta 1 0.5 g/dL (0.4-0.6); Prot Elec - Beta 2 0.5 g/dL (0.2-0.5); Prot Elec - Gamma 1.2 g/dL (0.8-1.7); Prot Elec - Total Protein 7.6 g/dL (6.1-8.1)
[2021-06-05 14:51] LABS: Calcium, Ionized 5.1 mg/dL (4.8-5.6)
[2021-06-05 15:36] LABS: Calcium (PTHI) 9.9 mg/dL (8.6-10.4); PTHI 98 pg/mL (14-64)
[2021-06-06 10:22] LABS: Alkaline Phosphatase Bone 22.1 mcg/L (see note)
== END 2021-06-04 13:56 | disposition home or self-care (01) ==
LOC: HO.LAB 13:55
PROVIDERS: PCP Physician Assistant Medical; Visit Provider Internal Medicine
DX: E21.3 Hyperparathyroidism, unspecified (principal); R59.0 Localized enlarged lymph nodes; M80.08XA Age-related osteoporosis with current pathological fracture, vertebra(e), initial encounter for fracture
CPT/HCPCS: 36415; 80053; 82306; 82330; 83970; 84075; 84100; 84165; 84439; 84443; 99202

== ENCOUNTER 2021-06-05 11:20 | Outpatient (REF) | payer MEDICARE, SELFPAY ==
[2021-06-10 18:31] LABS: N-Telopeptide 74 (see note); NTXCreaRU 118 mg/dL (20-275)
== END 2021-06-05 11:21 | disposition home or self-care (01) ==
LOC: HO.LNP 11:20
PROVIDERS: Visit Provider Internal Medicine
DX: E21.3 Hyperparathyroidism, unspecified (principal)
CPT/HCPCS: 82523

== ENCOUNTER 2021-07-03 13:50 | Outpatient (REF) | payer MEDICARE, SELFPAY ==
--- NOTE | ~2021-07-03 | US_ITS ---
EXAMINATION: US THYROID CLINICAL INFORMATION: Hyperparathyroidism, parathyroid adenoma, left neck mass. COMPARISON: None TECHNIQUE: Linear transducer grayscale and color Doppler examination with attention to the region of the thyroid. FINDINGS: SIZE: Measurements of the thyroid lobes and nodules are given in sagittal, anteroposterior and transverse dimensions respectively. Right Thyroid Lobe: 3.6 x 1.4 x 1.4 cm, volume 3.7 mL. Parenchyma: The gland echotexture is homogeneous. Thyroid vascularity is normal. Left Thyroid Lobe: 4.3 x 1.8 x 1.1 cm, volume 4.5 mL. Parenchyma: The gland echotexture is homogeneous. Thyroid vascularity is normal. Isthmus: 0.4 cm in maximum AP dimension. No focal thyroid nodule is seen. NODES: No lymphadenopathy is seen in the tissue surrounding the thyroid gland. No parathyroid adenoma is seen. Ultrasound of the left neck inferior to the ear over the sternocleidomastoid muscle is unremarkable. US/US thyroid IMPRESSION: Normal thyroid ultrasound. No parathyroid adenoma seen. ACR TI-RADS RECOMMENDATION REFERENCE: Ultrasound-guided fine-needle aspiration, followup ultrasound, no further follow up. * TR1 (0 point) and TR 2 (2 points): No FNA or follow up * TR3 (3 points): FNA if more than or equal to 2.5 cm in maximum dimension, followup ultrasound in 1, 3 and 5 years if 1.5 to 2.4 cm in maximum dimension. * TR4 (4-6 points): FNA if more than or equal to 1.5 cm in maximum dimension, followup ultrasound in 1, 2, 3 and 5 years if 1 to 1.4 cm in maximum dimension. * TR5 (more than or equal to 7 points): FNA if more than or equal to 1 cm in maximum dimension, followup ultrasound every year for 5 years if 0.5 to 0.9 cm in maximum dimension. * TR3, TR4 or TR5 nodules that are below the size threshold for follow up receive no follow up.
== END 2021-07-03 13:51 | disposition home or self-care (01) ==
LOC: HO.US 13:50
PROVIDERS: PCP Physician Assistant Medical; Visit Provider Internal Medicine
DX: E21.3 Hyperparathyroidism, unspecified (principal)
CPT/HCPCS: 76536

== ENCOUNTER 2021-08-21 13:44 | Outpatient (REF) | payer MEDICARE, SELFPAY ==
[2021-08-21 15:52] LABS: Alanine Aminotransferase 15 U/L (0-31); Albumin Level 3.9 g/dL (3.5-5.0); Alkaline Phosphatase 82 U/L (39-117); Anion Gap 9 (12-20); Aspartate Amino Transferase 27 U/L (5-31); Bilirubin Total 1.1 mg/dL (0.0-1.0); Blood Urea Nitrogen 15 mg/dL (9-16); Calcium 9.8 mg/dL (8.4-10.2); Carbon Dioxide 27 mmol/L (22-29); Chloride 106 mmol/L (96-108); Estimated Glomerular Filt Rate 54; Glucose Random 86 mg/dL (60-115); Potassium 4.4 mmol/L (3.3-5.1); Sodium 138 mmol/L (135-145)
[2021-08-22 14:07] LABS: Calcium (PTHI) 9.9 mg/dL (8.6-10.4); PTHI 103 pg/mL (14-64)
== END 2021-08-21 13:45 | disposition home or self-care (01) ==
LOC: HO.LAB 13:44
PROVIDERS: PCP Physician Assistant Medical; Visit Provider Internal Medicine
DX: M80.08XA Age-related osteoporosis with current pathological fracture, vertebra(e), initial encounter for fracture (principal); E21.3 Hyperparathyroidism, unspecified; R59.0 Localized enlarged lymph nodes
CPT/HCPCS: 36415; 80053; 82306; 83970; 84100; 99212